=== PATIENT | male | born 1945 | race Caucasian/White ===

== ENCOUNTER 2017-09-01 03:27 | Emergency (ER) | payer MEDICARE, OTHER ==
--- NOTE | 2017-09-01 03:59 | EDM.PDOC ---
<Rojas Flood - Last Filed: 09/01/17 06:07> ED HPI GENERAL MEDICAL PROBLEM - General Chief Complaint: Gastrointestinal Problem Stated Complaint: STOMACH PAIN Time Seen by Provider: 09/01/17 03:51 Source of Information: Reports: Patient, Family History Limitations: Reports: No Limitations - History of Present Illness INITIAL COMMENTS - FREE TEXT/NARRATIVE: 72-year-old male who just returned from [place] on an extended vacation developed abdominal pain over the past 2 hours. It's central in location from his epigastric down through the umbilicus to the lower abdomen. Some nausea with one small emesis, no fevers or chills, no radiation of pain to his back, no diarrhea. He has no history of abdominal surgeries and was not exposed to illness that he knows of. No headache. No shortness of breath or cough. Onset: Sudden (Started fairly suddenly 2 hours ago) Location: Reports: Abdomen Quality: Reports: Ache Severity: Moderate Improves with: Reports: None Worsens with: Reports: None Associated Symptoms: Reports: No Other Symptoms Abdominal Pain Score (Numeric/FACES): 7 - Related Data Allergies Allergy/AdvReac Type Severity Reaction Status Date / Time tetracycline [Tetracycline] Allergy Cannot Verified 09/01/17 03:40 Remember Home Meds: Home Meds Aspirin [Adult Low Dose Aspirin EC] 81 mg PO DAILY 09/01/17 [History] Atovaquone/Proguanil HCl [Malarone 62.5-25 MG Ped] 1 tab PO DAILY 09/01/17 [ History] Calcium Carbonate [Calcium] 1 tab PO DAILY 09/01/17 [History] Fluticasone Propionate [Flonase] 1 spray INH ASDIRECTED 09/01/17 [History] Hydrochlorothiazide 25 mg PO DAILY 09/01/17 [History] Rosuvastatin [Crestor] 10 mg PO BEDTIME 09/01/17 [History] Past Medical History Cardiovascular History: Reports: High Cholesterol, Hypertension Musculoskeletal History: Reports: Fracture - Past Surgical History GI Surgical History: Reports: Colonoscopy Social & Family History - Tobacco Use Smoking Status *Q: Never Smoker - Recreational Drug Use Recreational Drug Use: No ED ROS GENERAL - Review of Systems Review Of Systems: See Below Constitutional: Denies: Fever, Chills, Malaise Respiratory: Denies: Shortness of Breath, Hemoptysis GI/Abdominal: Reports: Abdominal Pain, Nausea, Vomiting. Denies: Constipation, Diarrhea, Distension : Reports: No Symptoms Musculoskeletal: Reports: No Symptoms Skin: Reports: No Symptoms Neurological: Denies: Headache ED EXAM, GI/ABD - Physical Exam Exam: See Below Exam Limited By: No Limitations General Appearance: Alert, No Apparent Distress Eyes: Bilateral: Normal Appearance Respiratory/Chest: No Respiratory Distress Cardiovascular: Regular Rate, Rhythm GI/Abdominal Exam: Soft, Tender (Tender to palpation in the right upper quadrant , epigastric area and periumbilical area. No focal guarding or rebound tenderness.) Neurological: Alert, Oriented Psychiatric: Normal Affect, Normal Mood Skin Exam: Warm, Dry Comments: I had the patient stand and drop to his heels firmly several times and this did not increase abdominal pain in fact he said it feels better to stand up. Course - Vital Signs Last Recorded V/S: Last Vital Signs Temp 98.1 F 09/01/17 05:07 Pulse 60 09/01/17 05:07 Resp 16 09/01/17 05:07 BP 181/73 H 09/01/17 05:07 Pulse Ox 98 09/01/17 05:07 - Orders/Labs/Meds Orders: Active Orders 24 hr Category Date Time Status Abdomen Ltd [US] Stat Exams 09/01/17 06:06 Taken Abdomen Pelvis w Cont [CT] Stat Exams 09/01/17 04:46 Taken Iopamidol [Isovue-300 (61%)] Med 09/01/17 05:15 Active 100 ml IV . DIRECTED Medication Orders Iopamidol (Isovue-300 (61%)) 100 ml IV . DIRECTED PINEDA Last Admin: 09/01/17 05:26 Dose: 100 ml Labs: Laboratory Tests 09/01/17 09/01/17 Range/Units 04:05 04:09 WBC 3.2 L (4.5-11.0) K/uL RBC 5.16 (4.30-5.90) M/uL Hgb 16.0 H (12.0-15.0) g/dL Hct 46.0 (40.0-54.0) % MCV 89 (80-98) fL MCH 31 (27-31) pg MCHC 35 (32-36) % Plt Count (150-400) K/uL Neut % (Auto) 55 (36-66) % Lymph % (Auto) 28 (24-44) % [place] % (Auto) 10 H (2-6) % Eos % (Auto) 5 H (2-4) % Baso % (Auto) 2 H (0-1) % Sodium 140 (140-148) mmol/L Potassium 3.6 (3.6-5.2) mmol/L Chloride 104 (100-108) mmol/L Carbon Dioxide 27 (21-32) mmol/L Anion Gap 9.3 (5.0-14.0) mmol/L BUN 20 H (7-18) mg/dL Creatinine 1.2 (0.8-1.3) mg/dL Est Cr Clr Drug Dosing 59.26 mL/min Estimated GFR (MDRD) 60 (>60) Glucose 119 H (74-106) mg/dL Calcium 8.9 (8.5-10.1) mg/dL Total Bilirubin 0.4 (0.2-1.0) mg/dL AST 21 (15-37) U/L ALT 26 (12-78) U/L Alkaline Phosphatase 69 (46-116) U/L Total Protein 7.4 (6.4-8.2) g/dL Albumin 3.6 (3.4-5.0) g/dL Globulin 3.8 H (2.3-3.5) g/dL Albumin/Globulin Ratio 1.0 L (1.2-2.2) Amylase 44 (25-115) U/L Lipase 139 (73-393) U/L Meds: Medications Generic Name Dose Route Start Last Admin Trade Name Freq PRN Reason Stop Dose Admin Iopamidol 100 ml 09/01/17 05:15 09/01/17 05:26 Isovue-300 (61%) IV 100 ml . DIRECTED PINEDA Administration Discontinued Medications Generic Name Dose Route Start Last Admin Trade Name Freq PRN Reason Stop Dose Admin Sodium Chloride 80 mls @ 3.5 mls/sec 09/01/17 05:14 09/01/17 05:26 Normal Saline IV 09/01/17 05:15 3.5 mls/sec ONETIME ONE Administration Sodium Chloride 10 ml 09/01/17 05:14 09/01/17 05:26 Saline Flush FLUSH 09/01/17 05:15 10 ml ONETIME ONE Administration - Re-Assessments/Exams Free Text/Narrative Re-Assessment/Exam: 09/01/17 04:03 CBC, CMP, amylase and lipase were obtained. Patient declined any pain medication at this time. 09/01/17 06:07 Labs all looked reassuring but the patient continued discomfort. CT with IV contrast was then obtained which showed likely cholelithiasis but no other significant findings. A gallbladder ultrasound was ordered. Departure - Departure Disposition: Home, Self-Care 01 Clinical Impression: RUQ abdominal pain - Discharge Information Referrals: Huan Meneses MD [Primary Care Provider] - Forms: ED Department Discharge Additional Instructions: Please follow-up with your primary care provider next 3-5 days for reevaluation , call return to the emergency department worsening of symptoms <OfficerSudhir - Last Filed: 09/01/17 08:20> Departure - Departure Time of Disposition: 08:20 Condition: Good - Assessment/Plan Plan: Assessment Acuity = acute Site and laterality = right upper quadrant abdominal pain Etiology = unclear etiology Manifestations = none Location of injury = Home Lab values = WBC low at 3.2, remainder CBC unremarkable CMP within normal limits , CT scan shows cholelithiasis recommend ultrasound to rule out any potential cholecystitis also small hiatal hernia, ultrasound reveals wall thickness is 0.27 cm sludge within the gallbladder shows no versus polyp 0.3 cm nonmobile no Naranjo sign Plan He is pain-free at this time I did review lab work CT scan and ultrasound results, plan is to follow-up with his primary care review test results consider a HIDA scan in the future This note was dictated using [employer] voice recognition software please call with any questions on syntax or arthur.
[2017-09-01] MEDS ORDERED: Sodium Chloride 0.9% 10 ML Syringe FLUSH ONE (05:14)
[2017-09-01] MEDS ORDERED: Sodium Chloride 0.9% 80 ML IV ONE (05:14)
[2017-09-01] MEDS ORDERED: Iopamidol 612 MG/ML 100 ML Bottle IV SCH (05:15)
--- NOTE | 2017-09-01 08:47 | US ---
Abdomen Ltd HISTORY: abdominal pain, assess gallbladder FINDINGS: The liver appears within normal limits in size and echogenicity with no focal parenchymal abnormality identified. Gallbladder is within normal limits in size. There is a small amount of sludge in the agnieszka men of the gallbladder. A 3 mm polyp versus nonshadowing gallstone is noted. Gallbladder wall is not thickened measuring 2.7 mm. There is no pericholecystic fluid. Sonographic Naranjo sign is negative. B iliary ducts are not dilated. Common bile duct measures 4 mm in diameter. The pancreas appears within normal limits in size and echogenicity with no mass or abnormal fluid col lections. Tail of the pancreas is obscured by bowel gas. Right kidney is within normal limits in size and echogenicity with no mass or hydronephrosis. The right kidney measures 11.3 cm in length. IVC is patent.. Normal hepatopedal flow is seen in the portal vein. IMPRESSION: There is a small amount of sludge lumen of the gallbladder with a 3 mm polyp versus nonshadowing gall stone. No other gallbladder disease is identified. No signs of acute cholecystitis. No other sonograp hic abnormality of the right upper quadrant is identified.
== END 2017-09-01 08:37 | disposition home or self-care (01) ==
LOC: JP.ED 03:27
DX: R10.11 Right upper quadrant pain (principal); E78.00 Pure hypercholesterolemia, unspecified; I10 Essential (primary) hypertension; Z88.1 Allergy status to other antibiotic agents; Z79.82 Long term (current) use of aspirin; Z79.899 Other long term (current) drug therapy
CPT/HCPCS: 36415; 74177; 76705; 80053; 82150; 83690; 85025; 99284; J7030; J7050; Q9967